=== PATIENT | male | born 1995 | race Caucasian/White ===

== ENCOUNTER 2024-01-09 00:08 | Emergency (ER) | payer BC, SELFPAY ==
--- NOTE | ~2024-01-09 | XR_ITS ---
Clinical Indication: Chest pain PA and lateral views of the chest: Comparison: None Findings: The lungs are clear, without evidence of focal consolidation or pleural effusion. Cardiome diastinal silhouette is within normal limits. Bones and soft tissues are unremarkable. Impression: Normal chest. Reviewed, dictated and finalized at location . Impression: Normal chest.
--- NOTE | 2024-01-09 00:09 | ECG_ITS ---
Test Date: 2024-01-09 00:15:33 Measurements Intervals [place] Rate: 95 P: 58 MD: 152 QRS: 41 QRSD: 93 T: 12 QT: 335 QTc: 422 Interpretive Statements SINUS RHYTHM NONSPECIFIC T-WAVE ABNORMALITY ABNORMAL ECG No previous ECG available for comparison Electronically Signed On 01-09-2024 10:43:28 CDT by Michelet Austin M.D.
[2024-01-09 00:20] VITALS: BP 155/97; PULSE 107; RESP 20; TEMP 36.7; O2SAT 99
[2024-01-09 00:39] LABS: Basophils Absolute Auto 0.1 K/mm3 (0.0-0.1); Basophils Percent Auto 0.5 % (0.2-1.2); Eosinophils Absolute Auto 0.1 K/mm3 (0-0.3); Eosinophils Percent Auto 0.9 % (0-4.4); Hemoglobin 14.7 g/dL (14.0-18.0); Immature Granulocyte Absolute 0.19 K/mm3 (0.00-0.031); Immature Granulocyte Percent A 1.4 % (0-0.5); Lymphocytes Absolute Auto 3.21 K/mm3 (0.9-3.2); Lymphocytes Percent Auto 24.2 % (18.3-44.2); Mean Corpuscular HGB Conc 32.7 g/dl (32-36); Mean Corpuscular Hemoglobin 27.1 pg (26-34); Mean Platelet Volume 10.8 fl (7.4-10.4); Monocytes Absolute Auto 0.7 K/mm3 (0.1-0.6); Monocytes Percent Auto 4.9 % (2.6-8.5); Neutrophils Absolute Auto 9.1 K/mm3 (1.3-6.7); Neutrophils Percent Auto 68.1 % (45.5-73.1); Platelet Count Result 356 k/mm3 (150-375); Red Blood Count 5.42 M/mm3 (4.6-6.20); Red Cell Distribution Width 14.4 % (11.5-14.5); White Blood Count 13.3 K/mm3 (4.5-10.0)
[2024-01-09 00:43] LABS: Alanine Aminotransferase 24 U/L (6-50); Albumin Level 4.9 g/dL (3.5-5.1); Alkaline Phosphatase 78 U/L (38-126); Anion Gap 11 mmol/L (4-12); Aspartate Amino Transferase 26 U/L (17-59); Bilirubin,Total 0.5 mg/dL (0.2-1.3); Blood Urea Nitrogen 14 mg/dL (9-20); Calcium 11.1 mg/dL (8.4-10.2); Carbon Dioxide 28 mmol/L (22-30); Chloride 98 mmol/L (98-107); Estimated CRCL calculation 155 ml/min; Estimated Glomerular Filt Rate > 60; Glucose 100 mg/dL (65-110); Lipase 44 U/L (23-300); Potassium 3.8 mmol/L (3.4-5.0); Sodium 137 mmol/L (137-145)
[2024-01-09 00:46] LABS: Prothrombin Time 13.4 Seconds (11.1-14.7)
[2024-01-09 00:47] LABS: Partial Thromboplastin Time 30.3 Seconds (22.3-36.8)
[2024-01-09 00:55] LABS: Troponin I < 0.012 ng/mL (0.000-0.034)
[2024-01-09 01:15] LABS: D Dimer < 0.27 ug/mL (<0.48)
--- NOTE | 2024-01-09 01:35 | ED.CHESTPAIN ---
HPI - Chest Pain General Chief Complaint: Chest Pain Stated Complaint: CP Time Seen by Provider: 01/09/24 00:47 History of Present Illness HPI narrative: Patient is a 28-year-old male who presents to the emergency department this evening complaining of chest pain for the past week. Patient states that he went to an urgent care and was told that his chest pain is due to chest wall pain/costochondritis and was prescribed a muscle relaxer and naproxen. Patient states that he took both of those and feels also did not help with his symptoms at all. Patient denies any history of cardiovascular disease and denies any significant past medical history. Patient does not take any medications and also denies any family history of cardiovascular disease. Does not smoke any tobacco. Denies any history of acid reflux or GERD. Denies any history of asthma and currently denying any shortness of breath. Patient also denies any recent fevers or chills but admits that he has been having a mild cough. No additional symptoms or concerns at this time. Related Data Allergies Allergy/AdvReac Type Severity Reaction Status Date / Time No Known Allergies Allergy Verified 01/09/24 00:22 Review of Systems Review of Systems: All systems are reviewed and are negative unless stated otherwise in the HPI. Exam Narrative: General: Alert, awake, afebrile, in no acute distress, very anxious. HEENT: PERRL, no rhinorrhea, no post nasal drip, oropharynx clear. Cardiovascular: Regular rate and rhythm, no murmurs, rubs or gallops, no peripheral edema. Respiratory: Clear to auscultation bilaterally, no tachypnea, no wheezing, no rhonchi, no rubs, no respiratory distress. Abdomen: Soft, nontender, nondistended, no rebound, no guarding, no peritoneal signs. Musculoskeletal: No joint swelling or deformity, normal muscle tone. Skin: No rashes or petechia, no signs of infection. Neurological: Alert and oriented to person, place, and time. Follows all commands. No focal deficits, speech is clear and fluent. Course Vital Signs Vital signs: Vital Signs Temperature 98.1 F 01/09/24 00:20 Pulse Rate 107 H 01/09/24 00:20 Respiratory Rate 20 01/09/24 00:20 Blood Pressure 155/97 H 01/09/24 00:20 Pulse Oximetry 99 01/09/24 00:20 Oxygen Delivery Room Air 01/09/24 00:20 Temperature 98.1 F 01/09/24 00:20 Pulse Rate 107 H 01/09/24 00:20 Respiratory Rate 20 01/09/24 00:20 Blood Pressure 155/97 H 01/09/24 00:20 Pulse Oximetry 99 10 00:20 Oxygen Delivery Room Air 01/09/24 00:20 MDM - Chest Pain MDM Narrative Medical decision making narrative: The patient was evaluated by myself in the emergency department. History is obtained from patient who is an independent historian and physical exam was performed. External medical records were reviewed at this time. IV was established and pertinent tests were ordered. EKG was obtained which revealed sinus rhythm rate of 95 beats per minute, no evidence of acute ischemia. EKG was independently interpreted by me and is currently pending official cardiology read. Laboratory results obtained revealing no acute process. D-dimer negative, troponin negative. Imaging studies obtained included CXR which was independently interpreted by me revealing no acute cardiopulmonary process, which is pending final radiology interpretation. Differential diagnosis considerations include acute stress reaction, anxiety, acute viral syndrome, infectious process such as pneumonia and acute coronary syndrome although unlikely given patient's low heart score of 0. Comorbidities impacting this visit include none. I have evaluated and discussed social determinants of health with the patient that could potentially impact subsequent diagnosis and treatment plans. On repeat assessment of the patient, reevaluation revealed that the patient is doing well and is in no acute distress. Patient symptoms have impr
--- NOTE | 2024-01-09 01:51 | PC.NURSE ---
ok by edp elbashire to not give asa or ns bolus. Pt no longer tachycardic
[2024-01-09 01:52] VITALS: PULSE 69
[2024-01-09 01:53] VITALS: BP 126/68; PULSE 76; RESP 16; TEMP 37.1; O2SAT 98
== END 2024-01-09 01:55 | disposition home or self-care (01) ==
PROVIDERS: Emergency Provider Emergency Medicine
DX: R07.89 Other chest pain (principal)
CPT/HCPCS: 36415; 71046; 80053; 83690; 84484; 85025; 85380; 85610; 85730; 93005; 99284

== ENCOUNTER 2024-04-16 23:03 | Emergency (ER) | payer BC, SELFPAY | END 2024-04-16 23:05 | disposition left against medical advice (07) | DX: Z53.21 Procedure and treatment not carried out due to patient leaving prior to being seen by health care provider (principal) | CPT/HCPCS: 99199 ==